=== PATIENT | female | born 1975 | race Two or more races ===

== ENCOUNTER 2022-12-30 14:39 | Emergency (ER) | payer SELFPAY ==
[~2022-12-30] VITALS: Ht 154.9 cm; Wt 75.7 kg
[2022-12-30] MEDS ORDERED: NEOMYCIN-BACITRACIN-POLYM 15GM TOP OINT TOP ONE (15:33)
[2022-12-30] MEDS ORDERED: BAC09TP TOP (16:20)
[2022-12-30] MEDS ORDERED: ACE3T PO (16:20)
[2022-12-30] MEDS ORDERED: IBUP-1455 PO (16:20)
[2022-12-30 16:47] VITALS: BP 136/88; PULSE 86; RESP 17; TEMP 98.4; O2SAT 96
== END 2022-12-30 16:50 | disposition home or self-care (01) ==
LOC: ER 14:39
DX: L60.0 Ingrowing nail (principal); Z88.0 Allergy status to penicillin
CPT/HCPCS: 11730